=== PATIENT | female | born 1965 | race Caucasian/White ===

== ENCOUNTER 2019-03-12 18:26 | Emergency (ER) | payer SELFPAY | END 2019-03-12 19:09 | disposition left against medical advice (07) | LOC: ER 18:31 | DX: R05 Cough (principal); Z53.21 Procedure and treatment not carried out due to patient leaving prior to being seen by health care provider ==

== ENCOUNTER 2019-03-13 19:33 | Emergency (ER) | payer SELFPAY ==
[~2019-03-13] VITALS: Ht 170.2 cm; Wt 131.5 kg
[2019-03-13 19:47] VITALS: BP 143/87
== END 2019-03-13 23:20 | disposition left against medical advice (07) ==
LOC: ER 19:35
DX: H92.02 Otalgia, left ear (principal); Z53.21 Procedure and treatment not carried out due to patient leaving prior to being seen by health care provider